=== PATIENT | male | born 1990 | race African-American/Black ===

== ENCOUNTER 2019-01-25 11:22 | Emergency (ER) | payer OTHER ==
[~2019-01-25] VITALS: Ht 175.3 cm; Wt 72.6 kg
--- NOTE | 2019-01-25 11:43 | NUR ---
ERMD at bedside for MSE
[2019-01-25] MEDS ORDERED: IBUPROFEN 600 MG TABLET PO ONE (11:45)
[2019-01-25] MEDS ORDERED: IBUPROFEN 600 MG TABLET ONE (11:53)
--- NOTE | 2019-01-25 13:15 | NUR ---
Patient discharged to home in stable conditon. Written and verbal after care instructions given. Patient verbalizes understanding of instructions. Patient ambulated with stable gait.
[2019-01-25 13:16] VITALS: BP 128/80
== END 2019-01-25 13:17 | disposition home or self-care (01) ==
LOC: ER 11:22
DX: S13.4XXA Sprain of ligaments of cervical spine, initial encounter (principal); S09.90XA Unspecified injury of head, initial encounter; V69.9XXA Occupant (driver) (passenger) of heavy transport vehicle injured in unspecified traffic accident, initial encounter; Y93.89 Activity, other specified; Y92.89 Other specified places as the place of occurrence of the external cause; Y99.8 Other external cause status
CPT/HCPCS: A4663